=== PATIENT | male | born 1990 | race Two or more races ===

== ENCOUNTER 2016-06-12 09:40 | Emergency (ER) | payer SELFPAY ==
--- NOTE | 2016-06-12 09:54 | EDPHY ---
H & P HPI/ROS: CHIEF COMPLAINT: Tachycardia. HISTORY OF PRESENT ILLNESS: The patient is a 25-year-old male who presents via EMS with tachycardia for the past 2 hours. It has been intermittent over that period of time, but is now persistent. He denies chest pain or shortness of breath. He reports that these episodes have been occurring for quite some time use to occur weekly but more recently has been occurring at least once daily. When they occur he feels like he is "going to ." He has not fainted. He has a distant history of hypothyroidism but is not on medication for this anymore. He does not use illicit stimulants and rarely drinks caffeine. However, he did drink caffeine drink today. No family history of sudden or early cardiac . He does not have known hypertension or diabetes. He does not smoke cigarettes, but did so in the past. REVIEW OF SYSTEMS: A ten point review of systems was performed and is negative with the exception of the items mentioned in the HPI. Source: Patient Exam Limitations: No limitations - Medical/Surgical History PMH: Denies. - Social History Smoking Status: Former smoker Additional Social History: 1. Former smoker. 2. Employed at [employer]. - Physical Exam Exam: General Appearance: Alert. Anxious and jittery. Vital signs reviewed. Heart rate ranging between 100 and 140. BP 163/88. Eyes: Pupils equal and round, no conjunctival injection, no discharge. Anicteric. ENT, Mouth: Mucous membranes are moist, no oropharyngeal erythema or edema. Neck: No lymphadenopathy, supple. No jugular venous distention. Respiratory: Lungs are clear to auscultation; no wheezes, rales, or rhonchi. Cardiovascular: Tachycardic. No appreciable murmur. Gastrointestinal: Abdomen is soft and nontender, no masses or organomegaly, bowel sounds normal. Skin: Warm and dry, no rashes on exposed skin, normal color. Back: Nontender to palpation over the thoracolumbar spine. No CVAT. Extremities: No lower extremity edema, no calf tenderness or swelling. Neurological: Alert and oriented. Moving all four extremities easily and equally. Psychiatric: Normal affect. Constitutional: Initial Vital Signs Temperature (C) 36.0 C 06/12/16 09:40 Heart Rate 197 H 06/12/16 09:40 Respiratory Rate 22 H 06/12/16 09:40 Blood Pressure 141/96 H 06/12/16 09:40 O2 Sat (%) 94 06/12/16 09:40 O2 Delivery Mode Nasal Cannula O2 (L/minute) 2 Allergies/Adverse Reactions: No Known Allergies Allergy (Unverified 06/12/16 10:07) Home Medications: Medication Instructions Recorded Cephalexin [Keflex (*)] 500 mg PO QID 06/12/16 Metoprolol Tartrate [Lopressor 25 12.5 mg PO BID #60 tab 06/12/16 mg (*)] Sertraline HCl [Zoloft 50mg (*)] 50 mg PO DAILY 06/12/16 oxyCODONE/APAP 5/325 [Percocet 0.5 - 1 tab PO Q6HRS PRN 06/12/16 5/325 (*)] Medical Decision Making - Diagnostics EKG Interpretation: The 12 lead EKG was interpreted by myself. See hard copy and/or "tracemaster" electronic copy for interpretation. Sinus tachycardia rate 159. Right axis deviation. ED Course/Re-evaluation: On arrival an EKG was obtained and the patient was noted to be in SVT. He was attached to a slice plug cutter operator and the crash cart was brought to the room. An IV was established and labs ordered. Chest x-ray ordered. 1L IV saline administered for rehydration. He will be given 1mg PO Ativan as he is severely anxious. Adenosine was planned but his heart rate decreased prior to his administration. He remained tachycardic around 110 after this spontaneous decrease in heart rate. I independently reviewed the patient's imaging studies on the PACS system. Please see Imaging section for radiologist reports. WBC elevated at 11.17. Potassium mildly low at 3.4, electrolytes otherwise within normal limits. Troponin normal. TSH pending. 1038: Consulted with Dr. Zepeda, cardiology. She has seen the patient's EKG and rhythm strip. She will consult with the patient. Repeat EKG ordered. He has remained tachycardic. She recommends 5mg IV Metoprolol. 1052: Reassessed patient after metoprolol. He is feeling slightly better. Heart rate staying in the low 100s. 1153: Consulted with Dr. Zepeda after her evaluation. She believes the patient is safe for discharge with 12.5mg Metoprolol BID and Dr. Mccormack follow up. She has discussed this plan with the patient and answered his questions. Differential Diagnosis: I considered a differential diagnosis that includes but is not limited to various causes of sinus tachycardia/arrhythmia (electrolyte disturbance, stimulants, pre excitation), SVT, atrial flutter and atrial fibrillation. - Data Points Laboratory Results: Laboratory Results 06/12/16 09:40 06/12/16 09:40 Medications Given: Discontinued Medications Sodium Chloride (Ns) 1,000 mls @ 0 mls/hr IV ONCE ONE PRN Reason: Wide Open Stop: 06/12/16 10:04 Last Admin: 06/12/16 10:15 Dose: 1,000 mls Lorazepam (Ativan Injection) 1 mg IVP EDNOW ONE Stop: 06/12/16 10:06 Last Admin: 06/12/16 10:16 Dose: 1 mg Metoprolol Tartrate (Lopressor Injection) 5 mg IVP EDNOW ONE Stop: 06/12/16 10:50 Last Admin: 06/12/16 11:25 Dose: 5 mg Potassium Chloride (Klor-Con) 40 meq PO ONCE ONE Stop: 06/12/16 12:02 Last Admin: 06/12/16 12:10 Dose: 40 meq Departure - Departure Disposition: Home, Routine, Self-Care Clinical Impression: SVT (supraventricular tachycardia) Condition: Good Instructions: Supraventricular Tachycardia (ED) Additional Instructions: Take Metoprolol as prescribed. Call Dr. Mccormack, cardiology, today to set up a follow up appointment. Return to the emergency department for any serious worsening of condition. Referrals: Erasto Mccormack MD [Medical Doctor] - As per Instructions Prescriptions: Metoprolol Tartrate [Lopressor 25 mg (*)] 12.5 mg PO BID #60 tab Report Scribed for: Cara Mathis Report Scribed by: Reinaldo Benitez Date of Report: 06/12/16 Time of Report: 10:00 Physician Review and Approval Statement: 06/12/16 09:54 Portions of this note were transcribed by the emergency medicine medical director. I, Dr. Cara Mathis, personally performed the history, physical exam, and medical decision- making; and confirmed the accuracy of the information in the transcribed note.
--- NOTE | 2016-06-12 09:55 | CPEKG ---
Heart Rate: 159 RR Interval: 377 P-R Interval: 166 QRSD Interval: 102 QT Interval: 348 QTC Interval: 567 P [place]: 0 QRS [place]: 174 T Wave [place]: 16 EKG Severity - ABNORMAL ECG - EKG Impression: SINUS TACHYCARDIA EKG Impression: RIGHT AXIS DEVIATION EKG Impression: MINIMAL ST DEPRESSION, INFERIOR LEADS EKG Impression: PROLONGED QT INTERVAL Electronically Signed By: Cara Mathis 12-Jun-2016 15:43:04
[2016-06-12] MEDS ORDERED: ADENOSINE 6 MG/2 ML VIAL ONE (10:00)
[2016-06-12] MEDS ORDERED: LORazepam 2 MG/ML INJ ONE (10:03)
[2016-06-12] MEDS ORDERED: NS 1,000 ML IV ONE (10:03)
[2016-06-12] MEDS ORDERED: LORazepam 2 MG/ML INJ IVP ONE (10:05)
[2016-06-12 10:07] LABS: % IMMATURE GRANULYOCYTES 0.4 % (0.0-1.1); ABSOLUTE IMMATURE GRANULOCYTES 0.04 10^3/uL (0.00-0.10); ADD DIFF? NO; ADD MORPH? NO; ADD SCAN? NO; ATYPICAL LYMPHOCYTE FLAG 10 (0-99); FRAGMENT RBC FLAG 0 (0-99); HEMATOCRIT 45.6 % (40.0-51.0); HEMOGLOBIN 15.7 g/dL (13.7-17.5); LEFT SHIFT FLG 0 (0-99); LIPEMIA HEMOLYSIS FLAG 90 (0-99); MEAN CELL HEMOGLOBIN CONCENTR. 34.4 g/dL (32.4-36.7); MEAN CELL VOLUME 87.2 fL (81.5-99.8); MEAN PLATELET VOLUME 9.7 fL (8.7-11.7); PLATELET CLUMPS FLAG 10 (0-99); PLATELET COUNT 283 10^3/uL (150-400); RED BLOOD CELL COUNT 5.23 10^6/uL (4.40-6.38); RED CELL DISTRIBUTION WIDTH 13.3 % (11.5-15.2)
[2016-06-12 10:15] VITALS: TEMP 96.8
[2016-06-12 10:19] LABS: ANION GAP 15 mEq/L (8-16); CALCIUM 9.8 mg/dL (8.5-10.4); CARBON DIOXIDE 23 mEq/l (22-31); CHLORIDE 104 mEq/L (97-110); CREATININE 0.8 mg/dL (0.7-1.3); GLOMERULAR FILTRATION RATE > 60; GLUCOSE 111 mg/dL (70-100); POTASSIUM 3.4 mEq/L (3.5-5.2); SODIUM 142 mEq/L (134-144)
[2016-06-12 10:30] LABS: TROPONIN I < 0.012 ng/mL (0-0.034)
[2016-06-12] MEDS ORDERED: METOPROLOL TARTRATE 5 MG/5 ML INJ IVP ONE (10:49)
--- NOTE | 2016-06-12 10:50 | CPEKG ---
Heart Rate: 122 RR Interval: 492 P-R Interval: 222 QRSD Interval: 92 QT Interval: 316 QTC Interval: 451 P [place]: 0 QRS [place]: 52 T Wave [place]: 35 EKG Severity - ABNORMAL ECG - EKG Impression: SINUS TACHYCARDIA EKG Impression: FIRST DEGREE AV BLOCK Electronically Signed By: Cara Mathis 12-Jun-2016 15:42:53
[2016-06-12 11:26] VITALS: O2SAT 99
[2016-06-12 11:27] VITALS: RESP 16
[2016-06-12 11:28] VITALS: BP 137/78; PULSE 90
--- NOTE | 2016-06-12 11:34 | CPEKG ---
Heart Rate: 94 RR Interval: 638 P-R Interval: 172 QRSD Interval: 96 QT Interval: 372 QTC Interval: 466 P [place]: 65 QRS [place]: 48 T Wave [place]: 39 EKG Severity - NORMAL ECG - EKG Impression: SINUS RHYTHM Electronically Signed By: Cara Mathis 12-Jun-2016 15:42:34
[2016-06-12] MEDS ORDERED: POTASSIUM CL 20 MEQ TAB PO ONE (12:01)
[2016-06-12] MEDS ORDERED: POTASSIUM CL 20 MEQ TAB ONE (12:06)
--- NOTE | 2016-06-12 13:41 | GCON ---
[f rep st] CONSULTATION CARDIOLOGY CONSULT DATE OF CONSULTATION: 06/12/2016 CHIEF COMPLAINT: Palpitations. HISTORY OF PRESENT ILLNESS: We are asked by Dr. Mathis to visit with Ed[facility]. The patient is a 25-year-old male with chief complaint of palpitations and past hypothyroidism. For the past 3 years, he has intermittent palpitations described as tachycardia. He almost always gets a sensation of numbness and pain, either in his left leg or his left arm, and then he has the onset of tachycardia. This is associated with chest discomfort and shortness of breath as well as p resyncope. He has not had syncope. Episodes used to happen once a week, but have now been occurrin g almost daily over the past couple of weeks. He denies excessive caffeine use, although today when this started, he was drinking an iced coffee. He denies stimulants or cocaine use. In the emergency department, his initial rhythm appeared to be a narrow complex tachycardia. The em ergency room staff were setting up to give adenosine when he spontaneously slowed to low-grade sinus tachycardia. While here, he has had intermittent bouts of what appears to be paroxysmal atrial tac hycardia. He has received metoprolol 5 mg IV and reports that he feels back to baseline. REVIEW OF SYSTEMS: A full 10-point review of systems is performed and is negative except that which is outlined in history of present illness. ALLERGIES: No known drug allergies. PAST MEDICAL HISTORY: SVT. Hypothyroidism for which he was on medications, but has been told he no longer needs medications. MEDICATIONS: None. SOCIAL HISTORY: The patient does not smoke cigarettes. He does use marijuana. He denies cocaine o r alcohol. He works in underground excavation. FAMILY HISTORY: His grandmother of a heart attack. PHYSICAL EXAM: VITAL SIGNS: Blood pressure is 137/78, heart rate currently 90, but was 197 upon ad mission to the emergency department. Respiratory rate is 16. Oxygen saturation 99% on 2 L nasal ca nnula. GENERAL: Well-appearing young male in no acute distress. HEENT: He does have a repaired l aceration over the bridge of his nose. Sclerae are clear and free of jaundice. Mucous membranes ar e moist. NECK: JVP less than 10. Carotids equal and 2+ bilaterally without bruit. HEART: Regula r rate and rhythm without murmur, rub, or gallop. LUNGS: Clear to auscultation bilaterally without wheezes, rhonchi, or rales. ABDOMEN: Soft, nontender, nondistended without bruits, masses or hepa tosplenomegaly. EXTREMITIES: Warm and perfused without cyanosis, clubbing, or edema. DIAGNOSTIC DATA: Serial EKGs reviewed. His EMS EKG appears to be SVT at 169 beats per minute. He then had an EKG that showed sinus tachycardia without ischemic changes. There is no evidence of pre -excitation. IMAGING: Chest x-ray reviewed by me shows no acute cardiopulmonary process. LABORATORY DATA: Sodium 142, potassium 3.4, chloride 104, bicarb 23, BUN 13, creatinine 0.8. Tropo aylin negative. TSH is pending. White count 11.17, hematocrit 45.6, and platelets 283. ASSESSMENT/PLAN: A 25-year-old male with what appears to be supraventricular tachycardia, likely pa roxysmal atrial tachycardia. Differential diagnosis includes atrial flutter or another form of supr aventricular tachycardia. He has responded to IV metoprolol. He appears back to baseline. His car diac exam is normal. 1. Supraventricular: I think he is safe for continued outpatient evaluation. He will be started o n metoprolol tartrate 12.5 mg p.o. b.i.d. and follow up with Dr. Erasto Mccormack for consideration of abl ation. Possible beta-dina side effects were reviewed with the patient. It is reassuring that he has not had syncope. He should have an outpatient echocardiogram to definitively rule out structur al heart disease, but I do not suspect that he has structural heart disease. Followup TSH, which is currently pending. 2. History of hypothyroidism: TSH is pending. 3. A slightly elevated white count: This may be a stress reaction. This can be followed up as an outpatient. Thank you for allowing us to participate in [facility]. Outpatient followup as detailed above. /[id number]/MODL
== END 2016-06-12 12:42 | disposition home or self-care (01) ==
DX: I47.1 Supraventricular tachycardia (principal); Z87.891 Personal history of nicotine dependence
CPT/HCPCS: 96374; J0153; J2060